=== PATIENT | male | born 2000 | race Caucasian/White ===

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

== ENCOUNTER 2018-03-24 22:57 | Emergency (ER) | payer OTHER | END 2018-03-25 01:56 | disposition home or self-care (01) | LOC: FTE 22:57 | DX: M79.674 Pain in right toe(s) (principal) | CPT/HCPCS: 73610; 73610-RT; 73630; 99283-25 ==

== ENCOUNTER 2018-12-28 06:04 | Emergency (ER) | payer OTHER | END 2018-12-28 07:02 | disposition home or self-care (01) | LOC: FTE 06:04 | DX: J32.9 Chronic sinusitis, unspecified (principal) | CPT/HCPCS: 99282; Z7502 ==

== ENCOUNTER 2019-01-21 21:07 | Emergency (ER) | payer OTHER ==
[2019-01-21] MEDS: traMADol 50 MG TAB PO (23:27)
[2019-01-21] MEDS: KETOROLAC 60 MG INJ IM (23:28)
[2019-01-22] MEDS: HYDROCODONE/APAP (5/325) TAB PO ×2 (03:23→03:30)
[2019-01-22] MEDS: ONDANSETRON (ODT) 4 MG TAB ODT (03:23)
[2019-01-22] MEDS: morphine 4 MG/ML VIAL IM (03:24)
== END 2019-01-22 04:00 | disposition home or self-care (01) ==
LOC: FTE 01-22 04:00
DX: S82.001A Unspecified fracture of right patella, initial encounter for closed fracture (principal); W50.1XXA Accidental kick by another person, initial encounter; Y92.322 Soccer field as the place of occurrence of the external cause
CPT/HCPCS: 29505; 73562; 96372; 99284-25

== ENCOUNTER 2019-01-31 13:47 | Day surgery (SDC) | payer OTHER ==
[2019-01-31] MEDS: CEFAZOLIN 2 GM/50 ML (PMX) 50 ML IVPB (07:00)
[~2019-01-31 13:47] MED LIST: CEFAZOLIN (20 MG/ML) IV SYG IV*; LIDOCAINE 4% CR TOP
[2019-01-31] MEDS ORDERED: DESFLURANE 15 MIN (16:50)
[2019-01-31] MEDS: LACTATED RINGER'S 1,000 ML IV (16:52)
[2019-01-31] MEDS ORDERED: FENTAnyl 50 MCG/ML VIAL (16:54)
[2019-01-31] MEDS ORDERED: MIDAZOLAM 1 MG/ML 2 ML INJ (16:54)
[2019-01-31] MEDS ORDERED: ROPIVACAINE 0.5 % 30 ML VIAL (16:55)
[2019-01-31] MEDS ORDERED: ALBUTEROL 0.083% (NEB) 2.5 MG/3 ML AMP HHN (17:00)
[2019-01-31] MEDS ORDERED: HYDROmorphONE 1 MG/5 ML IV SYRINGE IV (17:00)
[2019-01-31] MEDS ORDERED: FENTAnyl 50 MCG/ML VIAL IV ×2 (17:00)
[2019-01-31] MEDS ORDERED: DIPHENHYDRAMINE 50 MG INJ IV (17:00)
[2019-01-31] MEDS ORDERED: METOCLOPRAMIDE 10 MG INJ IV (17:00)
[2019-01-31] MEDS ORDERED: ROCURONIUM 50 MG INJ (17:41)
[2019-01-31] MEDS ORDERED: SUCCINYLCHOLINE CHLORIDE 100 MG/5 ML SYG IV (17:41)
[2019-01-31] MEDS ORDERED: CEFAZOLIN 1 GM INJ (17:41)
[2019-01-31] MEDS ORDERED: PROPOFOL 20 ML (17:41)
[2019-01-31] MEDS ORDERED: SUGAMMADEX SODIUM 200 MG/2 ML VIAL IV (17:41)
[2019-01-31] MEDS: FENTAnyl 50 MCG/ML VIAL IV ×3 (19:08→20:17)
[2019-01-31] MEDS: ONDANSETRON 4 MG INJ IV (19:12)
[2019-01-31] MEDS: HYDROmorphONE 1 MG/5 ML IV SYRINGE IV ×2 (19:20→19:42)
[2019-01-31] MEDS: MEPERIDINE 25 MG INJ IV (19:47)
== END 2019-01-31 20:45 | disposition home or self-care (01) ==
LOC: SDS 13:47
DX: S82.001A Unspecified fracture of right patella, initial encounter for closed fracture (principal); E66.9 Obesity, unspecified; X58.XXXA Exposure to other specified factors, initial encounter; Y93.89 Activity, other specified; Y92.89 Other specified places as the place of occurrence of the external cause; Y99.8 Other external cause status
CPT/HCPCS: 27350; 73562